=== PATIENT | female | born 2000 | race Caucasian/White ===

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

== ENCOUNTER 2024-10-03 06:11 | Emergency (ER) | payer BC, OTHER ==
[2024-10-03 06:17] VITALS: TEMP 98
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
[2024-10-03 07:33] VITALS: RESP 20
[2024-10-03 08:06] VITALS: BP 110/60; PULSE 86
== END 2024-10-03 08:06 | disposition home or self-care (01) ==
LOC: EC 06:11
DX: O99.891 Other specified diseases and conditions complicating pregnancy (principal); S50.311A Abrasion of right elbow, initial encounter; Z3A.30 30 weeks gestation of pregnancy; V89.2XXA Person injured in unspecified motor-vehicle accident, traffic, initial encounter
CPT/HCPCS: 99284

== ENCOUNTER 2024-10-03 08:19 | Outpatient (CLI) | payer BC ==
[2024-10-03] MEDS: LACTATED RINGERS 1,000 ML IV ONE (09:00)
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
[2024-10-03 12:33] VITALS: BP 117/69; PULSE 117; RESP 18; TEMP 97.7
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
== END 2024-10-03 12:33 | disposition home or self-care (01) ==
LOC: FBPOP 08:19
PROVIDERS: ATTEND Obstetrics & Gynecology Obstetrics
DX: O9A.213 Injury, poisoning and certain other consequences of external causes complicating pregnancy, third trimester (principal); O32.1XX1 Maternal care for breech presentation, fetus 1; G89.11 Acute pain due to trauma; Z3A.30 30 weeks gestation of pregnancy
CPT/HCPCS: 59025; 76805; 99214